=== PATIENT | male | born 1970 | race Two or more races ===

== ENCOUNTER 2017-03-28 08:08 | Emergency (ER) | payer MEDICAID, OTHER ==
[~2017-03-28] VITALS: Ht 172.7 cm; Wt 74.8 kg
[2017-03-28] MEDS ORDERED: SODIUM BICARBONATE 8.4% INJ 50ML SYRINGE IV ONE (08:09)
[2017-03-28] MEDS ORDERED: SODIUM BICARBONATE 8.4% INJ 50ML SYRINGE ONE (08:09)
[2017-03-28] MEDS ORDERED: EPINEPHrine HCL 1 MG/10 ML SYRG IV ONE (08:09)
[2017-03-28] MEDS ORDERED: SODIUM CHLORIDE 0.9% 1,000 ML IV ONE ×4 (08:18→08:35)
[2017-03-28] MEDS ORDERED: THIAMINE HCL 100 MG/ML 2ML VIAL IV ONE (08:45)
[2017-03-28] MEDS ORDERED: NOREPINEPHRINE 8 MG/250ML KIT 250 ML IV ONE (08:50)
[2017-03-28 08:52] LABS: Urine Bacteria FEW /hpf (None Seen); Urine Blood 2+ /uL (Negative); Urine Mucus FEW (None Seen); Urine Specific Gravity 1.019 (1.001-1.035); Urine Sperm PRESENT /hpf (None Seen); Urine WBC 101 /hpf (0 - 3)
[2017-03-28 09:07] LABS: Red Cell Distribution Width 12.3 % (11.8-14.3); White Blood Cell 4.7 10^3/uL (4.4-10.8)
[2017-03-28 09:09] LABS: Hematocrit 44.2 % (41.0-53.0); Hemoglobin 14.3 g/dL (13.5-17.5); Mean Corpuscular Hemoglobin 34.1 pg (28.0-32.0); Mean Corpuscular Hgb Conc. 32.4 g/dL (32.0-36.0); Mean Corpuscular Volume 105.1 fL (80.0-100.0)
[2017-03-28 09:12] LABS: Amphetamine Screen, Urine NEGATIVE (NEGATIVE); Barbiturate Scree,Urine NEGATIVE (NEGATIVE); Benzodiazephine Screen, Urine NEGATIVE (NEGATIVE); Cannabinoid Screen, Urine NEGATIVE (NEGATIVE); Cocaine Screen, Urine NEGATIVE (NEGATIVE); Opiate Scree,Urine NEGATIVE (NEGATIVE); Phencyclidine Screen, Urine NEGATIVE (NEGATIVE)
[2017-03-28 09:14] LABS: Platelet Count (auto) 56 10^3/uL (140-450)
[2017-03-28 09:16] LABS: Band Neutrophils % (manual) 0; Basophils % (manual) 0 (0.0-2.0); Blast Cells 0; Eosinophils % (manual) 0 (0-7); Metamyelocytes % 0; Myelocytes % 0; Promyelocytes % 0; Reactive Lymphocytes 0
[2017-03-28 09:24] LABS: INR 1.29 (0.9-1.15); Prothrombin Time 14.1 sec (9.37-12.3)
[2017-03-28 09:28] LABS: Partial Thromboplastin Time 128.4 sec (22.64-33.71)
[2017-03-28 09:31] LABS: Albumin 2.4 g/dL (3.4-5.0); BUN/Creatinine Ratio 15.2; Bilirubin, Total 1.9 mg/dL (0.2-1.0); Calcium 9.1 mg/dL (8.5-10.1); Potassium 3.8 mmol/L (3.5-5.1)
[2017-03-28 10:01] LABS: Lymphocytes % (manual) 93 (10.0-50.0); Monocytes % (manual) 4 (0-12)
== END 2017-03-28 13:37 | disposition expired ==
LOC: ER 08:08 → EDBD 08:08 → EDSEX 08:08 → ER 13:37
DX: I46.9 Cardiac arrest, cause unspecified (principal)
CPT/HCPCS: 31500; 36415; 71010; 80053; 80307; 80320; 81001; 83880; 84484; 85007; 85027; 85610; 85730; 92950; 93005; 96360; 99291; J0171; 94002